=== PATIENT | female | born 1960 | race Caucasian/White ===

== ENCOUNTER 2018-08-04 11:16 | Emergency (ER) | payer OTHER ==
[~2018-08-04] VITALS: Ht 162.6 cm; Wt 70.5 kg
[~2018-08-04 11:16] MED LIST: NAPR-1144 PO
[2018-08-04 11:21] VITALS: BP 176/101
[2018-08-04] MEDS ORDERED: VALA10002 PO (11:55)
[2018-08-04] MEDS ORDERED: HYDR-4353 PO (11:57)
[2018-08-04] MEDS ORDERED: GABA-530 PO (11:57)
== END 2018-08-04 12:15 | disposition home or self-care (01) ==
LOC: ER 11:17
DX: B02.9 Zoster without complications (principal); Z79.899 Other long term (current) drug therapy
CPT/HCPCS: 99283